=== PATIENT | male | born 1975 | race Caucasian/White ===

== ENCOUNTER → 2021-08-20 | Outpatient (CLI) | payer OTHER ==
--- NOTE | 2021-09-01 19:12 | SLEEP ---
[place] [address] SLEEP STUDY REPORT Name: IRWIN MORROW Lesly Room: [facility]#: [id number] Admission: 08/20/21 Attend Phys: Nick Ansari MD Discharge: Date of : 73 Report #: [id number] THIS REPORT FOR: cc: Tita Crocker NP, Elizabeth NP Pervez, Adeel MD ~ DATE OF STUDY: 08/20/2021 HOME SLEEP STUDY INTERPRETATION: Total duration of the study is 504 minutes. During this time duration, we recorded multiple sleep related respiratory events. These included 72 obstructive apneas, 5 central apneas, 2 mixed apneas in addition to 65 hypopneas. Overall, apnea-hypopnea index is 17.4. Body position data indicates the patient was lying supine for 427 minutes, the rest of the time the patient was on the right side. Events were recorded more commonly during the supine position at an apnea-hypopnea index of 19.7; however, there is no definite positional variation identified. There are multiple desaturations. Overall, the patient spent 27 minutes below an O2 saturation of 90%. Mean heart rate was 69. IMPRESSION: Obstructive sleep apnea, moderate with an apnea-hypopnea index of 17.4. With nocturnal hypoxemia, the patient spent 27 minutes below an O2 saturation of 90%. Events are somewhat more common in the supine position, but there is no definite positional variation. RECOMMENDATIONS: The use of a CPAP auto titrated device as well as repeat sleep study in the sleep lab for positive airway pressure titration are possible options. As there is a significant elevation in the apnea-hypopnea index as well as significant hypoxemia, perhaps I would favor an in-lab sleep study for positive airway pressure titration. This entire sleep study was reviewed by board certified sleep physician. <ELECTRONICALLY SIGNED> By: Nick Ansari MD 09/01/21 1912 [id number] [id number] Ansari MD /nt
== END ==
LOC: M.PUL 09:00
PROVIDERS: ATTEND Internal Medicine Critical Care Medicine
DX: G47.33 Obstructive sleep apnea (adult) (pediatric) (principal); R40.0 Somnolence; R06.83 Snoring; I10 Essential (primary) hypertension; R09.02 Hypoxemia